=== PATIENT | female | born 1990 | race Caucasian/White ===

== ENCOUNTER 2018-01-21 23:52 | Emergency (ER) | payer MEDICAID ==
[2018-01-22 00:12] VITALS: PULSE 70; RESP 18; O2SAT 99
--- NOTE | 2018-01-22 00:21 | ED PDOC ---
Arrival/HPI - General Chief Complaint: Abnormal Skin Integrity Time Seen by Provider: 01/22/18 00:16 Historian: Patient - History of Present Illness Narrative History of Present Illness (Text): 01/22/18 00:21 27 yo F presents c/o painful healing laceration that she sustained 2 weeks ago with a broken piece of glass. Patient states she continued to have pain despite keeping the wound clean. Reports no fever, chills, d/c from the wound, numbness , or decrease in ROM. Past Medical History - Infectious Disease Hx of Infectious Diseases: None - Tetanus Immunization Tetanus Immunization: Up to Date - Psychiatric Hx Substance Use: No - Surgical History Hx Section: Yes (x2) - Anesthesia Hx Anesthesia: No Family/Social History Family/Social History: No Known Family HX Smoking Status: Never Smoked Hx Alcohol Use: Yes Frequency of alcohol use: Socially Hx Substance Use: No Allergies/Home Meds Allergies/Adverse Reactions: Allergies No Known Allergies Allergy (Verified 01/22/18 00:12) Review of Systems - Review of Systems Constitutional: absent: Fatigue, Fevers Musculoskeletal: Arthralgias. absent: Back Pain, Neck Pain, Joint Swelling Skin: Laceration. absent: Rash, Pruritis, Skin Lesions Neurological: absent: Headache, Dizziness Physical Exam Vital Signs Temp Pulse Resp BP Pulse Ox 01/22/18 00:09 97.8 F 70 18 127/72 99 Temperature: Afebrile Blood Pressure: Normal Pulse: Regular Respiratory Rate: Normal Appearance: Positive for: Well-Appearing, Non-Toxic, Comfortable Pain Distress: None Mental Status: Positive for: Alert and Oriented X 3 - Systems Exam Lower Extremity: Present: NORMAL PULSES, Normal ROM, Tenderness (+healing 3 cm laceration to the dorsal lateral R foot that is tender to touch with minimal surrounding erythema and edema, no d/c, no bleeding), Neurovascularly Intact, Capillary Refill < 2 s. No: Temperature Abnormalties Neurological: Present: GCS=15, CN II-XII Intact, Speech Normal, Motor Func Grossly Intact, Normal Sensory Function, Gait Normal Skin: Present: Warm, Dry, Normal Color. No: Rashes Psychiatric: Present: Alert, Oriented x 3, Normal Insight, Normal Concentration Medical Decision Making ED Course and Treatment: 01/22/18 00:18 Plan : - XR R foot - keflex po - wound cx XR R foot : no fracture, no dislocation, no FB, as read by PA XR results d/w the patient. Encouraged to continue proper wound care. Advised to follow up with primary care physician in 1-2 days without fail. Advised to take medication as prescribed. Return to the emergency room at any time for any new or worsening symptoms. Patient states she fully agrees with and understands discharge instructions. States that she agrees with the plan and disposition. Verbalized and repeated discharge instructions and plan. I have given the patient opportunity to ask any additional questions. - RAD Interpretation Radiology Orders: 01/22/18 00:17 FOOT RIGHT 3 VIEWS ROUTINE [RAD] Stat - Medication Orders Current Medication Orders: Discontinued Medications Cephalexin Monohydrate (Keflex) 500 mg PO STAT STA PRN Reason: Protocol Stop: 01/22/18 00:18 Last Admin: 01/22/18 01:25 Dose: 500 mg - PA / RN COMPLEX CARE / Resident Statement / has reviewed & agrees with the documentation as recorded. Disposition/Present on Arrival - Present on Arrival Any Indicators Present on Arrival: No History of DVT/PE: No History of Uncontrolled Diabetes: No Urinary Catheter: No History of Decub. Ulcer: No History Surgical Site Infection Following: None - Disposition Have Diagnosis and Disposition been Completed?: Yes Diagnosis: Visit for wound check Disposition: HOME/ ROUTINE Disposition Time: 01:45 Patient Plan: Discharge Patient Problems: Current Active Problems Problem Status Onset Visit for wound check Acute Condition: STABLE Additional Instructions: Thank you for letting us take care of you today. You were treated for wound check. The emergency medical care you received today was directed at your acute symptoms. If you were prescribed any medication, please fill it and take as directed. It may take several days for your symptoms to resolve. Return to the Emergency Department if your symptoms worsen, do not improve, or if you have any other problems. Please contact your doctor in 2 days for re-evaluation and follow up / or call one of the physicians/clinics you have been referred to that are listed on the Patient Visit Information form that is included in your discharge packet. Bring any paperwork you were given at discharge with you along with any medications you are taking to your follow up visit. Our treatment cannot replace ongoing medical care by a primary care provider (PCP) outside of the emergency department. Thank you for allowing the [facility] team to be part of your care today. If you had an X-Ray : A Radiologist will review the ED reading if any change in treatment is needed we will contact you. If you had wound culture: It will take several days for the results, if any change in treatment is needed we will contact you. Prescriptions: Cephalexin [Keflex] 500 mg PO Q6 #28 capsule Referrals: Dieter Wiggins MD [[facility]] - Follow up with primary Forms: [employer] (T[place]ese), WORK NOTE
[2018-01-22 02:58] VITALS: BP 124/70; TEMP 97.6
--- NOTE | 2018-01-22 12:21 | RAD ---
Date of service: 01/22/2018 PROCEDURE: Right Foot Radiographs. HISTORY: pain COMPARISON: None. FINDINGS: BONES: Normal. No fracture. JOINTS: Normal. SOFT TISSUES: Normal. OTHER FINDINGS: None. IMPRESSION: Normal right foot radiographs.
== END 2018-01-22 01:55 | disposition home or self-care (01) ==
LOC: ED 23:52
DX: Z51.89 Encounter for other specified aftercare (principal)